=== PATIENT | female | born 1990 | race Two or more races ===

== ENCOUNTER 2018-02-03 12:07 | Emergency (ER) | payer MEDICAID ==
[~2018-02-03] VITALS: Ht 154.9 cm; Wt 65.3 kg
[2018-02-03 12:11] VITALS: Ht 154.9 cm; Wt 65.3 kg
[2018-02-03 12:38] LABS: BASOPHIL % 0.3 % (0-2); PLATELET COUNT 243 x10^3mcL (130-400); RED CELL DISTRIBUTION WIDTH 14.2 % (11.5-14.5)
[2018-02-03 12:54] LABS: CALCIUM 8.7 mg/dL (8.5-10.1); CARBON DIOXIDE 24.3 mmol/L (21-32); CHLORIDE SERUM 104 mmol/L (98-107); CREATININE SERUM 0.6 mg/dL (0.6-1.0); GFR1 > 60 mL/min; GLUCOSE SERUM 111 mg/dL (74-106); POTASSIUM SERUM 3.9 mmol/L (3.5-5.1); SODIUM SERUM 137 mmol/L (136-145)
[2018-02-03 12:59] LABS: ALBUMIN 3.5 g/dL (3.4-5.0); ALKALINE PHOSPHATASE 87 U/L (46-116); ALT/SGPT 25 U/L (14-59); AST/SGOT 18 U/L (15-37); BILIRUBIN TOTAL 0.9 mg/dL (0.20-1.00); LIPASE 131 IU/L (73-393); TOTAL PROTEIN, SERUM 7.4 g/dL (6.4-8.2)
[2018-02-03 13:49] VITALS: BP 115/75
== END 2018-02-03 13:49 | disposition home or self-care (01) ==
LOC: ED 12:07
PROVIDERS: Emergency Medicine
DX: K29.00 Acute gastritis without bleeding (principal)
CPT/HCPCS: 36415; J1885; Q0092; Q0162

== ENCOUNTER 2018-02-08 07:01 | Emergency (ER) | payer MEDICAID ==
[~2018-02-08] VITALS: Ht 154.9 cm; Wt 66.3 kg
[2018-02-08 07:08] VITALS: Ht 154.9 cm; Wt 66.3 kg
[2018-02-08 07:31] LABS: BASOPHIL % 0.4 % (0-2); PLATELET COUNT 262 x10^3mcL (130-400); RED CELL DISTRIBUTION WIDTH 14.4 % (11.5-14.5)
[2018-02-08 07:42] LABS: CALCIUM 8.7 mg/dL (8.5-10.1); CARBON DIOXIDE 24.7 mmol/L (21-32); CHLORIDE SERUM 102 mmol/L (98-107); CREATININE SERUM 0.6 mg/dL (0.6-1.0); GFR1 > 60 mL/min; GLUCOSE SERUM 139 mg/dL (74-106); POTASSIUM SERUM 3.8 mmol/L (3.5-5.1); SODIUM SERUM 135 mmol/L (136-145)
[2018-02-08 07:46] LABS: ALKALINE PHOSPHATASE 127 U/L (46-116); ALT/SGPT 54 U/L (14-59); AST/SGOT 29 U/L (15-37); BILIRUBIN TOTAL 0.4 mg/dL (0.20-1.00); LIPASE 114 IU/L (73-393); TOTAL PROTEIN, SERUM 7.5 g/dL (6.4-8.2)
[2018-02-08 10:53] VITALS: BP 109/50
== END 2018-02-08 10:53 | disposition home or self-care (01) ==
LOC: ED 07:01
PROVIDERS: Emergency Medicine
DX: N10 Acute pyelonephritis (principal); K76.9 Liver disease, unspecified; N83.201 Unspecified ovarian cyst, right side
CPT/HCPCS: J0696; J1885; J2270; J3490; J7030; Q0162; Q9967

== ENCOUNTER 2018-11-14 03:10 | Inpatient (IN) | payer MEDICAID ==
[~2018-11-14] VITALS: Ht 154.9 cm; Wt 64.0 kg
[2018-11-14 03:13] VITALS: Ht 154.9 cm; Wt 64.0 kg
--- NOTE | 2018-11-14 03:28 | NUR ---
PATIENT [id number] PRESENTS TO THE ED WITH C/O BILATERAL FLANK PAIN THAT HAS WORSENED OVER THE PAST SEVERAL MONTHS. PT STATES SHE WAS HERE A FEW MONTHS AGO WITH THE SAME SYMPTOMS, PT HAS A FEVER BUT DENIES N/V. BREATHING EVEN AND UNLABORED. SKIN WARM, DRY AND INTACT. NO OTHER SS OF DISTRESS NOTED. WILL CONTINUE TO MONITOR.
--- NOTE | 2018-11-14 03:50 | NUR ---
MEDICATED PER MD ORDERS
--- NOTE | 2018-11-14 03:59 | NUR ---
PT IN POSITION OF COMFORT, RESPS E/U, VSS, MOM AT BEDSIDE, CALL LIGHT WITHIN REACH
[2018-11-14 04:33] LABS: CALCIUM 8.9 mg/dL (8.5-10.1); CHLORIDE SERUM 102 mmol/L (98-107); CREATININE SERUM 0.9 mg/dL (0.6-1.0); GFR1 > 60 mL/min; GLUCOSE SERUM 142 mg/dL (74-106); POTASSIUM SERUM 3.6 mmol/L (3.5-5.1); SODIUM SERUM 138 mmol/L (136-145)
[2018-11-14 04:41] LABS: ALKALINE PHOSPHATASE 136 U/L (46-116); ALT/SGPT 64 U/L (14-59); AST/SGOT 64 U/L (15-37); BILIRUBIN TOTAL 0.4 mg/dL (0.20-1.00); TOTAL PROTEIN, SERUM 7.4 g/dL (6.4-8.2)
[2018-11-14 04:42] LABS: ALBUMIN 3.3 g/dL (3.4-5.0); C REACTIVE PROTEIN 12.4 mg/dL (<=0.9)
[2018-11-14 04:56] LABS: CK-MB 0.5 ng/mL (0-3.6)
[2018-11-14 04:58] LABS: FREE T4 0.9 ng/dL (0.76-1.46); T4(THYROXINE) 6.6 ug/dL (4.7-13.3)
[2018-11-14 05:08] LABS: BASOPHIL % 0.1 % (0-2); PLATELET COUNT 277 x10^3mcL (130-400); RED CELL DISTRIBUTION WIDTH 14.3 % (11.5-14.5)
[2018-11-14 05:35] LABS: T3 TOTAL 0.84 ng/mL
[2018-11-14 05:46] LABS: ERYTHROCYTE SED RATE 22 mm/hr (0-20)
--- NOTE | 2018-11-14 06:21 | NUR ---
PATIENT LYING ON GURNEY- MOM SITTING BEDSIDE. DR. BURNS TO ADMIT. PT BREATHING EVEN AND UNLABORED. NO OTHER SS OF DISTRESS NOTED.
[2018-11-14 06:53] LABS: MAGNESIUM 1.8 mg/dL (1.8-2.4); PHOSPHOROUS 1.8 mg/dL (2.5-4.9)
[2018-11-14 06:56] LABS: CHOLESTEROL/HDL RATIO 1.7
--- NOTE | 2018-11-14 07:15 | NUR ---
PROVIDED REPORT TO AMINAH CERVANTES FOR CONTINUED CARE OF PATIENT.
--- NOTE | 2018-11-14 07:35 | NUR ---
REPORT GIVEN TO LOVE BURR, UPDATED ON STAUS,LABS AND VITALS. [facility] ALL BELONGINGS WITH PT.
--- NOTE | 2018-11-14 08:00 | NUR ---
RECEIVED PT FROM ER WITH DIAGNOSIS OF SEPSIS/PYELONEPHRITIS. PAIN TO RT FLANK. RIGHT SIDED PAIN STARTED Monday11/12/18 AM. NO BLOOD NOTED IN URINE. NO PROBLEMS VOIDING. EMESIS X 1 BEFORE GETTING TO ER. HX OF OVARIAN CYST, CONTROL IMPLANT TO LEFT UPPER ARM. NKA. ALERT AND ORIENTED. BREATHING FREELY ONRA. NO PHYSICAL LIMITATIONS. RECEIVED ROCEPHIN IN ER. C/O PAIN5/10 WILL ADMIN PAIN MED ORDERED PRN. NS 100 CC HOUR. ORIENTED TO ROOM AND CALL LIGHT.
--- NOTE | 2018-11-14 08:59 | NUR ---
US RENAL BEING PERFORMED, CT WILL BE UP SHORTLY TO GET PT.
--- NOTE | 2018-11-14 09:27 | NUR ---
BACK FROM CT SCAN
[2018-11-14 10:14] VITALS: BP 114/62
[2018-11-14 10:36] LABS: microscopic required? YES; urine erythrocyte 1+ (NEGATIVE)
[2018-11-14 10:45] LABS: AMPHETAMINE QUAL UR NONE DETECTED (See below)
[2018-11-14 12:40] VITALS: BP 116/73
--- NOTE | 2018-11-14 13:35 | NUR ---
Discount pharmacy card and list to low cost medical clinics given to patient by Roni Brown.
[2018-11-14 16:22] VITALS: BP 1113/55
--- NOTE | 2018-11-14 19:33 | NUR ---
RESTING COMFORTABLY WITH MOTHER AT BEDSIDE. NO PAIN AT THIS TIME. TOLERATES REG DIET. AMBUALTORY. DR. DRAPER AWARE OF GM RODS (-) BLOOD CX. RECEIVING ROCEPHIN IV. NS INFUSING 100 CC HOUR. PT AMBULATED IN HALLWAY. CALL LIGHT WITHIN REACH.
--- NOTE | 2018-11-14 19:50 | NUR ---
RECIEVED PT FROM DAY SHIFT NURSE. PT IS A/0 X4. PT IS ON TELE #29 SR HR 75. PT DENEIS ANY CHEST PAIN OR SOB AT THIS TIME. PT HAS PALPABLE PULSES, NO EDEMA NOTED. PT BREATHE SOUNDS ARE EVEN AND UNLABORED. PT LUNG SOUNDS CLEAR BILATERALLY. PT VOIDS REGULARLY, ABLE TO AMBULATE. PT DENIES ANY PAIN AT THIS TIME. PT ABD SOFT AND FLAT, NO ABD PAIN AT THIS TIME. LAST AM 11/14. PT IV TO LAC INFSUING WELL. WILL CONT TO MONITOR. CALL LIGHT WITHIN REACH.
--- NOTE | 2018-11-14 20:48 | NUR ---
PT C/O OF PAIN 8/10 IN THE LOWER BACK. GAVE NORCOX1 PER MD ORDER WILL CONT TO MONITOR.
[2018-11-14 21:15] VITALS: BP 121/78
--- NOTE | 2018-11-14 21:50 | NUR ---
PT CONTINUED TO C/O OF PAIN, GAVE TYLENOLX1 PER MD ORDER. WILL CONT TO MONITOR.
--- NOTE | 2018-11-15 00:15 | NUR ---
PT IS ASLEEP IN BED, BREATHING EVEN AND UNLABORED. NO RESP DISTRESS NOTED, WILL CONT TO MONITOR. CALL LIGHT WITHING REACH.
[2018-11-15 05:22] VITALS: BP 117/80
--- NOTE | 2018-11-15 05:32 | NUR ---
PT C/O OF FLANK PAIN 12/08. RECIEVED NORCO X1. WILL CONT TO MONITOR.
--- NOTE | 2018-11-15 06:02 | NUR ---
PT SLEPT ON AND OFF THROUGH OUT THE NIGHT. PT BREATHE SOUNDS ARE EVEN AND UNLABORED. NO RESP DISTRESS NOTED. PT C/O OF FLANK PAIN , GAVE NORCO X2, TYLENOLX 1. PT IV TO LAC INFUSING WELL, CDI. PT WAS COOPERATIVE WITH NURSING CARE, NO ACUTE CHANGES THROUGH OUT THE NIGHT. PT IS TELE #29 WITH SR. PT DENIES CHEST PAIN OR SOB AT THIS TIME. WILL CONT TO MONITOR AND ENDORSE CARE TO DAY SHIFT NURSE.
[2018-11-15 06:08] LABS: BASOPHIL % 0.1 % (0-2); PLATELET COUNT 255 x10^3mcL (130-400)
[2018-11-15 06:38] LABS: CALCIUM 8.9 mg/dL (8.5-10.1); CARBON DIOXIDE 23.7 mmol/L (21-32); CHLORIDE SERUM 106 mmol/L (98-107); CREATININE SERUM 0.6 mg/dL (0.6-1.0); GFR1 > 60 mL/min; GLUCOSE SERUM 104 mg/dL (74-106); PHOSPHOROUS 2.6 mg/dL (2.5-4.9); POTASSIUM SERUM 4.2 mmol/L (3.5-5.1); RED CELL DISTRIBUTION WIDTH 14.9 % (11.5-14.5); SODIUM SERUM 140 mmol/L (136-145)
--- NOTE | 2018-11-15 07:15 | NUR ---
ALERT AND ORIENTED. BREATHING FREELY ON RA. SITTING UP IN BED. RT FLANK PAIN MANAGED AT THIS TIME. 06/10 INDEPENDENT W ADL'S. VSS. NS INFUSING 100 Q HOUR. BED IN LOW POSITION. ENCOURAGED TO DRINK PLENTY OF WATER TO HELP FLUSH KIDNEYS. CALL LIGHT WITHIN REACH.
[2018-11-15 08:54] VITALS: BP 112/74
[2018-11-15 08:58] VITALS: BP 112/74
[2018-11-15 13:20] VITALS: BP 116/77
--- NOTE | 2018-11-15 16:20 | NUR ---
RETURNED TELE 29 TO TELE STATION, NOW MED SURG PT,
[2018-11-15 17:36] VITALS: BP 107/74
--- NOTE | 2018-11-15 18:59 | NUR ---
ALERT AND ORIENTED. INDEPENDENT W ADL'S. PAIN HAS LESSENED SINCE YESTERDAY. MEDICATED WITH NORCO X 1 FOR PAIN WITH GOOD EFFECT. CONTINUES ON NS 100 CC HOUR AND ROCEPHIN Q 24 HOURS. VSS, AFEBRILE. CALL LIGHT WITHIN REACH.
--- NOTE | 2018-11-15 19:35 | NUR ---
RECIEVED PT FROM DAY SHIFT NURSE. PT IS A/0 X4. PT IS MED SURG, DENIES ANY CHEST PAIN OR SOB AT THIS TIME. PT HAS PALPABLE PULSES, NO EDEMA NOTED. PT BREATHE SOUNDS ARE EVEN AND UNLABORED. PT LUNG SOUNDS CLEAR BILATERALLY. PT VOIDS REGULARLY, ABLE TO AMBULATE. PT DENIES ANY PAIN AT THIS TIME. PT ABD SOFT AND FLAT, NO ABD PAIN AT THIS TIME. LAST BM WAS 11/12. PT IV TO LAC INFUSING WELL, NO REDNESS OR SWELLING NOTED.WILL CONT TO MONITOR. CALL LIGHT WITHIN REACH.
[2018-11-15 20:47] VITALS: BP 122/77
--- NOTE | 2018-11-15 21:08 | NUR ---
PT C/O OF FLANK PAIN, 12/08. GAVE NORCO X1 PER MD ORDER. WILL CONT TO MONITOR.
--- NOTE | 2018-11-16 00:02 | NUR ---
PT IS ASLEEP IN BED. PT IS EASILY AROUSABLE WITH VERBAL STIMULI. PT DENIES ANY PAIN AT THIS TIME. NO RESP DISTRESS NOTED AT THIS TIME. WILL CONT TO MONITOR. CALL LIGHT WITHIN REACH.
--- NOTE | 2018-11-16 05:02 | NUR ---
PT SLEPT THROUGH THE NIGHT. PT BREATHE SOUNDS ARE EVEN AND UNLABORED. NO RESP DISTRESS NOTED. PT C/O OF FLANK PAIN , GAVE NORCO X1 PER MD ORDER. PT IV TO LAC INFUSING WELL, CDI. PT WAS COOPERATIVE WITH NURSING CARE, NO ACUTE CHANGES THROUGH OUT THE NIGHT. PT IS MED SURG, PT DENIES ANY CHEST PAIN OR SOB AT THIS TIME. WILL CONT TO MONITOR AND ENDORSE CARE TO DAY SHIFT NURSE.
[2018-11-16 05:29] VITALS: BP 124/83
[2018-11-16 06:23] LABS: BASOPHIL % 0.1 % (0-2); PLATELET COUNT 283 x10^3mcL (130-400)
[2018-11-16 06:53] LABS: CALCIUM 8.9 mg/dL (8.5-10.1); CARBON DIOXIDE 26.4 mmol/L (21-32); CHLORIDE SERUM 106 mmol/L (98-107); CREATININE SERUM 0.5 mg/dL (0.6-1.0); GFR1 > 60 mL/min; GLUCOSE SERUM 94 mg/dL (74-106); MAGNESIUM 2.1 mg/dL (1.8-2.4); PHOSPHOROUS 3.2 mg/dL (2.5-4.9); POTASSIUM SERUM 4.4 mmol/L (3.5-5.1); SODIUM SERUM 142 mmol/L (136-145)
[2018-11-16 07:00] LABS: RED CELL DISTRIBUTION WIDTH 14.7 % (11.5-14.5)
--- NOTE | 2018-11-16 07:05 | NUR ---
RECIEVED PT RESTING IN BED WITH NO C/O PAIN, DISTRESS, OR SOB. A/O X4, NO GONZALEZ OR DIZZINESS. NS 100ML/HR RUNNING IN LAC 20G, INTACT AND PATENT WITH NO REDNESS OR INFLAMMATION. SAFETY PRECAUTIONS IN PLACE, CALL LIGHT WITHIN REACH, WILL MONITOR.
[2018-11-16] MEDS ORDERED: CIPRO500 MG PO (08:42)
[2018-11-16 09:23] VITALS: BP 129/85
--- NOTE | 2018-11-16 10:00 | NUR ---
PT STABLE AND COMFORTABLE. NO CHANGES. SAFETY PREC. IN PLACE, CALL LIGHT WITHIN REACH, WILL MONITOR.
--- NOTE | 2018-11-16 12:21 | NUR ---
DR. SHERIDAN MADE AWARE BLOOD CULTURE CAME BACK POSITIVE FOR E.COLI/MDRO. PATIENT WILL BE DISCHARGED HOME WITH ORAL ABD (CIPRO 500 MG). PRIMARY NURSE AWARE.
[2018-11-16 13:59] VITALS: BP 129/85
--- NOTE | 2018-11-16 15:04 | NUR ---
PT STABL. NO PAIN, DISTRESS, OR SOB, CALL LIGHT WITHIN REACH, WILL MONITOR.
--- NOTE | 2018-11-16 15:31 | NUR ---
PT STABLE FOR DISCHARGE PER MD ORDER. ALL INSTRUCTIONS, EDUCATION, AND PERSCRIPTIONS GIVEN TO PT. PT VERBALIZES UNDERSTANDING. ALL DISCHARGE FORMS SIGNED BY PT. IV REMOVED WITH CATHETER INTACT AND NO REDNESS OR INFLAMMATION NOTED AT THE SITE. ID BAND REMOVED FROM PT ARM. PT ESCORTED DOWN TO LOBBY BY [facility] AND ACCOMPANIED BY FAMILY.
== END 2018-11-16 15:32 | disposition home or self-care (01) | DRG 872 ==
LOC: ED 03:10 → DU 06:11 → MU 11-15 15:21
PROVIDERS: Specialist; ADMIT Internal Medicine
DX: A41.9 Sepsis, unspecified organism (principal); N12 Tubulo-interstitial nephritis, not specified as acute or chronic; E83.39 Other disorders of phosphorus metabolism; N83.202 Unspecified ovarian cyst, left side; N92.6 Irregular menstruation, unspecified
CPT/HCPCS: 84439; G0378; J0696; J1885; J2405; J3010; J7030; J7060; Q0092